=== PATIENT | male | born 1980 | race Caucasian/White ===

== ENCOUNTER 2018-05-19 14:01 | Emergency (ER) | payer MEDICAID ==
[2018-05-19] MEDS: HYDROCODONE/APAP (5/325) TAB PO (14:45)
== END 2018-05-19 15:30 | disposition home or self-care (01) ==
LOC: FTE 14:01
DX: S99.921A Unspecified injury of right foot, initial encounter (principal); X58.XXXA Exposure to other specified factors, initial encounter; Y92.9 Unspecified place or not applicable
CPT/HCPCS: 73630; 99283-25